=== PATIENT | female | born 1995 | race Caucasian/White ===

== ENCOUNTER 2016-09-07 21:36 | Emergency (ER) | payer OTHER | END 2016-09-08 01:31 | disposition home or self-care (01) | LOC: ER 21:36 | DX: J06.9 Acute upper respiratory infection, unspecified (principal); N39.0 Urinary tract infection, site not specified; D72.829 Elevated white blood cell count, unspecified; E87.6 Hypokalemia; E87.2 Acidosis; E11.65 Type 2 diabetes mellitus with hyperglycemia; Z79.4 Long term (current) use of insulin | CPT/HCPCS: 36415; 87502; 96361; 96365; 96375 ==